=== PATIENT | female | born 2005 | race Caucasian/White ===

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

== ENCOUNTER 2025-07-20 11:46 | Emergency (ER) | payer SELFPAY ==
[2025-07-20 11:53] VITALS: BP 127/71; PULSE 76; RESP 16; TEMP 37.1; O2SAT 99; BMI 21.2
--- NOTE | 2025-07-20 11:57 | DI.RAD.S_ITS ---
PROCEDURE: XR SHOULDER LT MIN 2V INDICATIONS: fall saturday, felt a pop, constant pain TECHNIQUE: 3 views of the shoulder were acquired. COMPARISON: None. FINDINGS AND IMPRESSION: No displaced fracture or dislocation. No suspicious soft tissue calcifications. If there is high concern for further derangement, consider MRI evaluation. Dictated by: Gunnar Santamaria M.D. on 07/20/2025 at 12:34 Approved by: Gunnar Santamaria M.D. on 07/20/2025 at 12:35
--- NOTE | 2025-07-20 13:10 | ED.UPPEXIN ---
HPI - Extremity Injury (Upper) <Rashaad Thornton PA-C - Last Filed: 07/21/25 11:54> General Chief Complaint: Extremity Injury, Upper Stated Complaint: fell, Hurt left shoulder 6 days Time Seen by Provider: 07/20/25 11:55 Source: patient Mode of arrival: Ambulatory History of Present Illness HPI narrative: 19-year-old female presents to the ED with 1 week of left-sided shoulder pain. 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 Patient lost her balance while working on the deck due to the ship's movement, fell to her left side, felt her left shoulder pop out of the socket and then strike the ground. Patient states that she felt fine right after, however since then the left shoulder pain has worsened. No numbness, tingling, weakness. Patient's job as a hand pattern marker is quite physically demanding and requires her to use her shoulders and arms extensively. Related Data Allergies Allergy/AdvReac Type Severity Reaction Status Date / Time No Known Drug Allergies Allergy Verified 07/20/25 11:53 Review of Systems <Rashaad Thornton PA-C - Last Filed: 07/21/25 11:54> Constitutional Constitutional: Denies chills, Denies fatigue, Denies fever(s), Denies frequent falls, Denies lethargy and Denies weakness Eyes Eyes: Denies change in vision, Denies eye discharge, Denies irritation and Denies loss of vision ENT Ears, Nose, Mouth, and Throat: Denies change in voice, Denies dizziness, Denies neck pain, Denies sore throat and Denies throat swelling Cardiovascular Cardiovascular: Denies chest pain, Denies irregular heart rhythm, Denies lightheadedness, Denies palpitations, Denies dyspnea, Denies dyspnea on exertion and Denies orthopnea Respiratory Respiratory: Denies cough, Denies dyspnea, Denies dyspnea on exertion and Denies wheezing Gastrointestinal Gastrointestinal: Denies abdominal pain, Denies change in bowel habits, Denies diarrhea, Denies nausea and Denies vomiting Musculoskeletal Musculoskeletal: Denies neck pain and Denies numbness Comments: Left shoulder pain Integumentary/Breasts Skin/Breast: Denies pruritus, Denies erythema, Denies rash and Denies wounds Neurologic Neurologic: Denies behavioral changes, Denies confusion, Denies dizziness, Denies frequent falls, Denies loss of vision, Denies numbness and Denies weakness Psychiatric Psychiatric: Denies anxiety, Denies behavioral changes, Denies confusion, Denies depression, Denies homicidal ideation and Denies suicidal ideation Endocrine Endocrine: Denies fatigue, Denies flushing and Denies palpitations Hematologic/Lymphatic Hematologic/Lymphatic: Denies easy bruising Allergic/Immunologic Allergic/Immunologic: Denies urticaria, Denies throat swelling and Denies wheezing Patient History <Rashaad Thornton PA-C - Last Filed: 07/21/25 11:54> Social History Smoking Status: Never smoker Smoking Status: Never smoker Exam <Rashaad Thornton PA-C - Last Filed: 07/21/25 11:54> Narrative Exam Narrative: Const General:?cooperative, healthy appearing and comfortable [facility] Head:?normal to inspection Ears:?hearing grossly normal bilaterally Nose:?external nose normal Face and sinus:?normal facial exam and sinuses nontender Mouth:?oral mucosae normal Throat:?posterior oropharynx normal Eyes General:?appearance normal, both eyes and all related structures Neck Neck:?normal visual inspection and no lymphadenopathy noted Resp Effort & Inspection:?normal respiratory effort Auscultation:?clear to auscultation bilaterally Cardio Rate:?regular rate Rhythm:?regular rhythm Musculoskeletal No tenderness to palpation, bruising, deformities of the left shoulder. There is full range of motion. Strength and sensation intact. Neurovascularly intact. Neuro General:?patient alert, patient awake and patient oriented x3 Initial Vital Signs Initial Vital Signs: Vital Signs Temperature 98.7 F 07/20/25 11:53 Pulse Rate 76 07/20/25 11:53 Respiratory Rate 16 07/20/25 11:53 Blood Pressure 127/71 07/20/25 11:53 Pulse Oximetry 99 07/20/25 11:53 Oxygen Delivery Method Room Air 07/20/25 11:53 <Tosin Gomez DO - Last Filed: 07/26/25 07:33> Initial Vital Signs Initial Vital Signs: Vital Signs Temperature 98.7 F 07/20/25 11:53 Pulse Rate 76 07/20/25 11:53 Respiratory Rate 16 07/20/25 11:53 Blood Pressure 127/71 07/20/25 11:53 Pulse Oximetry 99 07/20/25 11:53 Oxygen Delivery Method Room Air 07/20/25 11:53 Course <Rashaad Thornton PA-C - Last Filed: 07/21/25 11:54> Orders Ordered: Discontinued Medications Ketorolac Tromethamine (Ketorolac 30 Mg/Ml Vial) 30 mg IM NOW ONE Stop: 07/20/25 13:26 Last Admin: 07/20/25 13:37 Dose: 30 mg Documented By: RB Vital Signs Vital signs: Vital Signs - 8 hr 07/20/25 11:53 Temperature 98.7 F Pulse Rate 76 Respiratory Rate 16 Blood Pressure 127/71 Pulse Oximetry 99 Oxygen Delivery Method Room Air <Tosin Gomez DO - Last Filed: 07/26/25 07:33> Orders Ordered: Discontinued Medications Ketorolac Tromethamine (Ketorolac 30 Mg/Ml Vial) 30 mg IM NOW ONE Stop: 07/20/25 13:26 Last Admin: 07/20/25 13:37 Dose: 30 mg Documented By: RB Vital Signs Vital signs: Vital Signs - 8 hr 07/20/25 11:53 Temperature 98.7 F Pulse Rate 76 Respiratory Rate 16 Blood Pressure 127/71 Pulse Oximetry 99 Oxygen Delivery Method Room Air MDM - Extremity Injury (Upper) <Rashaad Thornton PA-C - Last Filed: 07/21/25 11:54> MDM Narrative Medical decision making narrative: 19-year-old female presents to the ED with 1 week of left-sided shoulder pain. Concern for fracture/dislocation versus musculoskeletal sprain/strain versus other. X-ray was obtained which shows no acute findings. Patient's symptoms most consistent with a possible dislocation that self-resolved versus a shoulder sprain. Patient was fitted in a sling, advised ibuprofen for pain and inflammation. Recommend resting the shoulder for the next 2 weeks to allow it to heal. Requested her workplace to give her accommodations for a less physical role for the next 2 weeks. Patient given an injection of Toradol today. Recommend follow-up with PCP/ortho if symptoms do not resolve over the next few days. ED return precautions discussed with patient. Patient verbalized understanding. Medical records reviewed: Yes Discharge Plan Departure Patient Disposition: Home Clinical Impression: Left shoulder pain Qualifiers: Chronicity: acute Qualified Code(s): M25.512 - Pain in left shoulder Instructions: DI for Shoulder Sprain Activity Restrictions/Additional Instructions: You were evaluated in the emergency department today for left shoulder pain from an injury. It appears that your x-ray is normal with no fractures or dislocations. However, given the nature of the injury, it is likely you have suffered a shoulder sprain. It is strongly advised that you rest the shoulder for 2 weeks. You have been fitted with a sling, which you may wear for the next few days for pain and healing. You were given an injection of Toradol in the emergency department today. You may continue to take 800 mg of ibuprofen every 8 hours with food for pain. Please ensure that your workplace can provide you alternate light duty that allows you to rest and heal the shoulder. If your symptoms do not improve over the next few days, please follow-up with your primary care doctor for further evaluation and treatment. Return to the ED if you have worsening symptoms, numbness, tingling, weakness. Stand Alone Forms: Patient Portal/API ED Sign-out <Tosin Gomez DO - Last Filed: 07/26/25 07:33> Cosign ED Attending Ivone Attestation: I was immediately available in the department for consultation.
[2025-07-20] MEDS: KETOROLAC 30 MG/ML VIAL IM (13:37)
[2025-07-20 14:00] VITALS: BP 126/74; PULSE 61; RESP 16; O2SAT 99
== END 2025-07-20 14:02 | disposition home or self-care (01) ==
PROVIDERS: Emergency Provider Student in an Organized Health Care Education/Training Program
DX: M25.512 Pain in left shoulder (principal); W19.XXXA Unspecified fall, initial encounter
CPT/HCPCS: 73030; 96372; 99283; J1885